=== PATIENT | female | born 1935 | race Caucasian/White ===

== ENCOUNTER 2022-05-27 10:45 | Emergency (ER) | payer MEDICARE, SELFPAY ==
[2022-05-27 10:53] VITALS: BP 134/78; PULSE 76; RESP 18; TEMP 36.2; O2SAT 98
[2022-05-27 11:07] VITALS: BP 143/66; PULSE 59; RESP 18; O2SAT 96
--- NOTE | 2022-05-27 11:13 | ECG_ITS ---
Measurements Intervals [place] Rate: 60 P: 57 [place]: 201 QRS: 23 QRSD: 108 T: 42 QT: 446 QTc: 446 Interpretive Statements SINUS RHYTHM POOR R-WAVE PROGRESSION, POSSIBLE ANTERIOR MYOCARDIAL INFARCTION , OF INDETERMINATE AGE [30 ms Q WAVE IN V3/V4, OR R < 0.2 mV IN V4] POSSIBLE OLD INFERIOR MYOCARDIAL INFARCTION NONSPECIFIC ST AND T CHANGES COMPARED TO ECG 10/10/2019 18:46:42 NO SIGNIFICANT CHANGES Electronically Signed On 05-27-2022 16:32:35 CDT by Ivy Zhu M.D.
[2022-05-27 11:17] VITALS: BP 141/61; PULSE 59; RESP 20; O2SAT 98
[2022-05-27 11:24] LABS: Basophils Absolute Auto 0.1 K/mm3 (0.0-0.1); Eosinophils Absolute Auto 0.2 K/mm3 (0-0.3); Hematocrit 38.5 % (37.0-47.0); Hemoglobin 12.5 g/dL (12.0-15.0); Immature Granulocyte Absolute 0.02 K/mm3 (0.00-0.031); Immature Granulocyte Percent A 0.3 % (0-0.5); Lymphocytes Absolute Auto 2.32 K/mm3 (0.9-3.2); Lymphocytes Percent Auto 33.7 % (18.3-44.2); Mean Corpuscular HGB Conc 32.5 g/dl (32-36); Mean Corpuscular Hemoglobin 33.5 pg (26-34); Mean Corpuscular Volume 103.2 fl (80-100); Mean Platelet Volume 11.4 fl (7.4-10.4); Monocytes Absolute Auto 0.8 K/mm3 (0.1-0.6); Neutrophils Absolute Auto 3.4 K/mm3 (1.3-6.7); Platelet Count Result 232 k/mm3 (150-375); Red Blood Count 3.73 M/mm3 (4.2-5.4); Red Cell Distribution Width 14.7 % (11.5-14.5); White Blood Count 6.9 K/mm3 (4.5-10.0)
[2022-05-27 11:32] VITALS: BP 152/65; PULSE 61; RESP 18; O2SAT 97
[2022-05-27 11:34] LABS: INR 1.1; Prothrombin Time 13.3 Seconds (11.1-14.7)
[2022-05-27 11:47] VITALS: BP 149/69; PULSE 58; O2SAT 98
[2022-05-27 11:52] LABS: Albumin Level 4.3 g/dL (3.5-5.1); Alkaline Phosphatase 89 U/L (38-126); Anion Gap 9 mmol/L (8-16); Aspartate Amino Transferase 27 U/L (14-36); Bilirubin,Total 0.7 mg/dL (0.2-1.3); Blood Urea Nitrogen 20 mg/dL (7-17); Calcium 9.1 mg/dL (8.4-10.2); Carbon Dioxide 29 mmol/L (22-30); Chloride 101 mmol/L (98-107); Estimated Glomerular Filt Rate 59; Glucose 106 mg/dL (65-110); Potassium 3.8 mmol/L (3.4-5.0); Sodium 139 mmol/L (137-145)
[2022-05-27 12:00] LABS: Alanine Aminotransferase < 6 U/L (6-35)
--- NOTE | 2022-05-27 12:12 | ED.GENADULT ---
HPI - General Adult General Chief complaint: Recheck/Abnormal Lab/Rx Stated complaint: labs - k high platelets low Time Seen by Provider: 05/27/22 11:13 Source: patient and family Mode of arrival: ambulatory Limitations: no limitations History of Present Illness HPI narrative: 86-year-old with a history of hypertension, CAD was sent from doctor's office with abnormal lab work which was done yesterday. As per the doctor's office she had a platelet count of 38 and a potassium of 6.1. Patient denies any headache, chest pain or shortness of breath. No history of any bleeding. She states I am just fine . Related Data Allergies Allergy/AdvReac Type Severity Reaction Status Date / Time No Known Allergies Allergy Verified 05/27/22 10:59 Review of Systems Review of Systems: All systems reviewed & are unremarkable except as noted in HPI and below Constitutional: Constitutional: Reports no additional constitutional complaints Eyes: Eyes: Reports no additional eye complaints ENT: Reports system reviewed and no additional complaints, except as documented Cardiovascular: Cardiovascular: Reports no additional cardiovascular complaints Respiratory: Respiratory: Reports no additional respiratory complaints Gastrointestinal: Gastrointestinal: Reports no additional gastrointestinal complaints Genitourinary: Genitourinary: Reports no additional female genitourinary complaints Musculoskeletal: Musculoskeletal: Reports no additional musculoskeletal complaints Integumentary/Breasts: Skin/Breast: Reports system reviewed and no additional complaints, except as docu Neurologic: Reports system reviewed and no additional complaints, except as documented Psychiatric: Psychiatric: Reports no additional psychiatric complaints PMFSH Past Medical History Medical History (Updated 05/27/22 @ 12:19 by Osman Sullivan MD) A-fib Anemia Anxiety Arthritis CAD (coronary artery disease) Cataracts, bilateral Colon tumor Depression H/O: HTN (hypertension) Hepatitis History of angina History of GI bleed History of heart attack History of melena Hx of fracture of rib Hypercholesteremia MVP (mitral valve prolapse) Shingles Surgical History Surgical History H/O breast biopsy x2 History of angioplasty History of appendectomy History of dilation and curettage History of hand surgery rt for trigger thumn History of partial colectomy History of partial knee replacement rt Hx of bilateral cataract extraction Hx of cardiac cath with stent placement S/P CABG x 4 Family History Family History Father Family history of glaucoma Cerebrovascular accident Carcinoma of colon Malignant neoplasm of prostate Mother Hypertension Family history of cardiovascular disease Acute myocardial infarction, Onset Age: 43 Sibling Hypertension Family history of cardiovascular disease Social History Social History (Updated 05/22/22 @ 12:55 by JAJA Son) Smoking packs per day: 0.5 Smoking cigarettes per day: 10.0 Years smoked: 25 Smoking pack-years: 12.50 Smoking status: Former smoker Tobacco type: cigarettes Second hand tobacco smoke exposure: No Smoking end date: 09/18/80 Alcohol intake: current Drinks per week: 2 Alcohol use details: She drinks 2 margaritas every Thursday. Substance use: never Substance use type: does not use Gender identity (if verbalized by the patient): Female Spiritual care concerns: No Agree to blood products: Yes Exam Narrative: GENERAL: Well-appearing, well-nourished, and in no acute distress. HEAD: Normocephalic, atraumatic. EYES: PERRLA and EOMI. NECK: Supple. CHEST: Clear to auscultation. No respiratory distress. HEART: Regular rate and rhythm. No murmur heard. Normal peripheral pulses. ABDOMEN: Soft, nontender, nondistended, normal active jasson
[2022-05-27 12:17] VITALS: BP 151/66; PULSE 57; O2SAT 97
== END 2022-05-27 12:41 | disposition home or self-care (01) ==
PROVIDERS: Emergency Provider Family Medicine; PCP Emergency Medicine
DX: I48.91 Unspecified atrial fibrillation (principal); I25.10 Atherosclerotic heart disease of native coronary artery without angina pectoris; I10 Essential (primary) hypertension; I25.2 Old myocardial infarction; E78.00 Pure hypercholesterolemia, unspecified; I34.1 Nonrheumatic mitral (valve) prolapse; F41.9 Anxiety disorder, unspecified; F32.A Depression, unspecified; Z86.2 Personal history of diseases of the blood and blood-forming organs and certain disorders involving the immune mechanism; Z79.82 Long term (current) use of aspirin; R94.31 Abnormal electrocardiogram [ECG] [EKG]
CPT/HCPCS: 36415; 80053; 85025; 85610; 93005; 99283

== ENCOUNTER 2022-12-14 18:05 | Emergency (ER) | payer MEDICARE, SELFPAY ==
[2022-12-14] VITALS (26 sets, daily range): BP systolic 107–135; BP diastolic 45–78; PULSE 53–70; RESP 10–39; TEMP 36.7; O2SAT 77–100
--- NOTE | ~2022-12-14 | XR_ITS ---
EXAMINATION: XR chest 2V Exam Date/Time: 12/14/2022 20:00 [employer] HISTORY: weakness, dizziness Comparison: 10/11/2019. RESULT: Lines, tubes, and devices: Intact sternotomy wires. Mediastinal surgical clips. Lungs and pleura: Senescent changes, minimal bibasilar atelectasis/scar, otherwise clear. Cardiomediastinal silhouette: Stable cardiomegaly. Other: No acute osseous or upper abdominal finding. IMPRESSION: No acute cardiopulmonary process. Reviewed, dictated and finalized at location K. N [facility]ING GUIDE
--- NOTE | ~2022-12-14 | CT_ITS ---
EXAMINATION: CT brain wo con DATE: 12/14/2022 19:34 INDICATION: CONFUSION . TECHNIQUE: Computed tomography (CT) of the head was performed without intravenous contrast. The mA wa s adjusted according to patient size. Iterative reconstruction technique was employed. The dose-lengt h product was 908.00 mGy-cm. COMPARISON: 10/10/2019. FINDINGS: Exam limited by significant motion artifact which persisted in repeated imaging attempts. No acute intracranial hemorrhage or extra-axial fluid collection. No hydrocephalus, mass, or herniation. No acute ischemic infarct. Unremarkable dural venous sinus attenuation. No acute osseous abnormality. The aerated spaces are clear. Moderate atrophy and chronic white matter change. Atherosclerotic intracranial calcification. Chronic bilateral cerebellar and lacunar infarctions. Bilateral lens replacements. IMPRESSION: Significantly motion limited examination, such that subtle pathology could be missed. Within that con straint, no definite acute intracranial process is detected Reviewed, dictated and finalized at location K. BLOWER IMPRESSION: Significantly motion limited examination, such that subtle pathology could be m issed. Within that constraint, no definite acute intracranial process is detect ed
--- NOTE | 2022-12-14 18:41 | ECG_ITS ---
Measurements Intervals [place] Rate: 53 P: [place]: 0 QRS: 10 QRSD: 114 T: 255 QT: 477 QTc: 449 Interpretive Statements SINUS RHYTHM WITH HIGH GRADE AV BLOCK BASELINE ARTIFACT ANTERIOR MYOCARDIAL INFARCTION, OF INDETERMINATE AGE MODERATE T-WAVE ABNORMALITY, CONSIDER INFERIOR ISCHEMIA CANNOT RULE OUT INFERIOR INFARCTION ABNORMAL ECG COMPARED TO ECG 05/27/2022 11:02:04 NO SIGNIFICANT CHANGES Electronically Signed On 12-15-2022 14:07:37 PROCUREMENT ENGINEER by Dominic Galeano M.D.
--- NOTE | 2022-12-14 18:43 | ED.GENADULT ---
HPI - General Adult General Chief complaint: Weakness Stated complaint: generalized weakness Time Seen by Provider: 12/14/22 18:35 History of Present Illness HPI narrative: Patient is an 87-year-old female with a history of Parkinson's disease, dementia, hypothyroidism, here from nursing facility for evaluation of generalized weakness. Her daughter expresses concern over the fact that patient has been more fatigued than usual over the past several days and has had several falls out of bed. No head injury. She was treated for UTI last week at her nursing facility. She had some dizziness today that resolved. Patient denies any chest pain, shortness of breath, fevers or chills, nausea or vomiting, abdominal pain, dysuria, urgency or frequency. She has been compliant with all of her medicines. Related Data Allergies Allergy/AdvReac Type Severity Reaction Status Date / Time No Known Allergies Allergy Verified 12/14/22 18:25 Review of Systems Review of Systems: Gen.: Reports weakness Eyes: Denies eye pain or visual change ENT: Denies congestion Respiratory: Denies shortness of breath or cough CV: Denies chest pain or palpitations GI: Denies abdominal pain nausea, emesis or diarrhea denies burning, urgency, frequency or hematuria Musculoskeletal: Denies back pain or muscle pain Neuro: Denies numbness, tingling, weakness or focal weakness Skin: Denies rash Except as documented, all other systems reviewed and negative [facility] Past Medical History Medical History A-fib Anemia Anxiety Arthritis CAD (coronary artery disease) Cataracts, bilateral Colon tumor Depression H/O: HTN (hypertension) Hepatitis History of angina History of GI bleed History of heart attack History of melena Hx of fracture of rib Hypercholesteremia MVP (mitral valve prolapse) Shingles Surgical History Surgical History H/O breast biopsy x2 History of angioplasty History of appendectomy History of dilation and curettage History of hand surgery rt for trigger thumn History of partial colectomy History of partial knee replacement rt Hx of bilateral cataract extraction Hx of cardiac cath with stent placement S/P CABG x 4 Family History Family History Father Family history of glaucoma Cerebrovascular accident Carcinoma of colon Malignant neoplasm of prostate Mother Hypertension Family history of cardiovascular disease Acute myocardial infarction, Onset Age: 43 Sibling Hypertension Family history of cardiovascular disease Social History Social History (Updated 09/25/22 @ 13:42 by Gunjan Carr) Social History: Caffeine-daily Smoking packs per day: 0.5 Smoking cigarettes per day: 10.0 Years smoked: 25 Smoking pack-years: 12.50 Smoking status: Former smoker Tobacco type: cigarettes Second hand tobacco smoke exposure: No Smoking end date: 09/18/80 Alcohol intake: former Drinks per week: 2 Alcohol use details: She drinks 2 margaritas every Thursday. Substance use: never Substance use type: does not use Living arrangements: alone Gender identity (if verbalized by the patient): Female Spiritual care concerns: No Agree to blood products: Yes Exam Narrative: APPEARANCE: Well appearing, no pain in distress, well-nourished. Head: Normocephalic and atraumatic. EYES: PERRLA/EOMI, conjunctivae clear NOSE: No nasal drainage EARS: External ear normal in appearance THROAT: Oropharynx is clear. Mucous membranes are moist. NECK: Supple. No adenopathy, no masses. RESPIRATORY: Airway patent, respirations nonlabored. Clear to auscultation bilaterally, no rales, rhonchi, wheezing. CARDIOVASCULAR: Regular rate and rhythm without murmurs, rubs, or gallops. ABDOMINAL: Normoactive bowel sounds. Soft, nontender, nondistended. No rebou
[2022-12-14] MEDS: SODIUM CHLORIDE 0.9% IV 1,000 ML 999 ML IV CONT (18:58)
[2022-12-14 19:02] LABS: Basophils Absolute Auto 0.1 K/mm3 (0.0-0.1); Basophils Percent Auto 0.7 % (0.2-1.2); Eosinophils Percent Auto 0.3 % (0-4.4); Hematocrit 37.4 % (37.0-47.0); Hemoglobin 12.6 g/dL (12.0-15.0); Immature Granulocyte Absolute 0.04 K/mm3 (0.00-0.031); Immature Granulocyte Percent A 0.4 % (0-0.5); Lymphocytes Absolute Auto 1.49 K/mm3 (0.9-3.2); Lymphocytes Percent Auto 14.5 % (18.3-44.2); Mean Corpuscular HGB Conc 33.7 g/dl (32-36); Mean Corpuscular Hemoglobin 33.5 pg (26-34); Mean Corpuscular Volume 99.5 fl (80-100); Mean Platelet Volume 11.9 fl (7.4-10.4); Monocytes Absolute Auto 1.2 K/mm3 (0.1-0.6); Monocytes Percent Auto 11.3 % (2.6-8.5); Neutrophils Absolute Auto 7.5 K/mm3 (1.3-6.7); Neutrophils Percent Auto 72.8 % (45.5-73.1); Platelet Count Result 209 k/mm3 (150-375); Red Blood Count 3.76 M/mm3 (4.2-5.4); Red Cell Distribution Width 14.6 % (11.5-14.5); White Blood Count 10.3 K/mm3 (4.5-10.0)
[2022-12-14 19:12] LABS: Alanine Aminotransferase 9 U/L (6-35); Albumin Level 4.4 g/dL (3.5-5.1); Alkaline Phosphatase 97 U/L (38-126); Anion Gap 7 mmol/L (8-16); Aspartate Amino Transferase 25 U/L (14-36); Bilirubin,Total 0.9 mg/dL (0.2-1.3); Blood Urea Nitrogen 27 mg/dL (7-17); Calcium 9.5 mg/dL (8.4-10.2); Carbon Dioxide 30 mmol/L (22-30); Chloride 95 mmol/L (98-107); Estimated CRCL calculation 23 ml/min; Estimated Glomerular Filt Rate 42; Glucose 101 mg/dL (65-110); Potassium 3.2 mmol/L (3.4-5.0); Sodium 132 mmol/L (137-145)
[2022-12-14 19:16] LABS: INR 1.1; Prothrombin Time 13.6 Seconds (11.1-14.7)
[2022-12-14 19:17] LABS: Partial Thromboplastin Time 27.1 SECONDS (22.3-36.8)
[2022-12-14 19:48] LABS: Influenza A QL RT-PCR Negative (Negative); Influenza B QL RT-PCR Negative (Negative); SARS-CoV-2 RNA PCR Negative
[2022-12-14 19:56] LABS: Thyroid Stimulating Hormone Reflex 0.088 uIU/mL (0.465-4.68)
[2022-12-14 20:35] LABS: Free T4 Free Thyroxine Reflex 2.45 ng/dL (0.78-2.19)
[2022-12-14 21:41] LABS: Appearance Urine Clear (Clear); Bacteria Urine None Seen /hpf; Bilirubin Urine Negative (Negative); Blood Urine Negative (Negative); Color Urine Dark Yellow (Yellow); Glucose Urine UA Negative (Negative); Hyaline Casts Urine Present /lpf; Ketones Urine 1+ mg/dL (Negative); Leukocyte Esterase Ur Negative LEU/UL (Negative); Mucus Urine Present /lpf; Need Manual Microscopic Reviewed; Nitrate Urine Negative (Negative); Protein Urine Trace mg/dL (Negative); RBC Urine 0-2 /hpf (0-2); Specific Grav Ur 1.018 (1.001-1.035); Squamous Epithelial Cell Urine None seen /hpf (Few); WBC Urine 0-5 /hpf
[2022-12-14 21:43] LABS: Add Urine Microscopic? YES
--- NOTE | 2022-12-14 22:07 | PC.NURSE ---
Patient ambulated by MARANDA Ramirez with walker. Patient ambulated well without difficulty.
--- NOTE | 2022-12-14 22:44 | PC.NURSE ---
Patient care report called to MARANDA Ortiz at [facility].
== END 2022-12-14 22:43 ==
PROVIDERS: Emergency Medicine; Emergency Provider Physician Assistant; PCP Emergency Medicine
DX: R53.1 Weakness (principal); Z20.822 Contact with and (suspected) exposure to COVID-19; G20 Parkinson's disease; F03.90 Unspecified dementia, unspecified severity, without behavioral disturbance, psychotic disturbance, mood disturbance, and anxiety; I48.91 Unspecified atrial fibrillation; I10 Essential (primary) hypertension; I25.2 Old myocardial infarction; I34.1 Nonrheumatic mitral (valve) prolapse; E78.00 Pure hypercholesterolemia, unspecified; E03.9 Hypothyroidism, unspecified; M19.90 Unspecified osteoarthritis, unspecified site; Z86.2 Personal history of diseases of the blood and blood-forming organs and certain disorders involving the immune mechanism; Z87.891 Personal history of nicotine dependence; Z95.1 Presence of aortocoronary bypass graft; Z95.5 Presence of coronary angioplasty implant and graft; Z96.651 Presence of right artificial knee joint; Z90.49 Acquired absence of other specified parts of digestive tract; Z79.82 Long term (current) use of aspirin; I44.30 Unspecified atrioventricular block; R94.31 Abnormal electrocardiogram [ECG] [EKG]
CPT/HCPCS: 36415; 70450; 71046; 80053; 81001; 84439; 84443; 85025; 85610; 85730; 87636; 93005; 96360; 96361; 99284; J7030

== ENCOUNTER 2022-12-30 12:44 | Outpatient (CLI) | payer MEDICARE, SELFPAY ==
[2022-12-30 20:00] LABS: Anion Gap 10 mmol/L (8-16); Blood Urea Nitrogen 22 mg/dL (7-17); Calcium 9.9 mg/dL (8.4-10.2); Carbon Dioxide 27 mmol/L (22-30); Chloride 96 mmol/L (98-107); Estimated Glomerular Filt Rate 42; Glucose 97 mg/dL (65-110); Potassium 3.2 mmol/L (3.4-5.0); Sodium 133 mmol/L (137-145)
== END 2022-12-30 12:45 | disposition home or self-care (01) ==
LOC: ANHGOSHLAB 12:45
PROVIDERS: PCP Emergency Medicine; Visit Provider Emergency Medicine
DX: N17.9 Acute kidney failure, unspecified (principal)
CPT/HCPCS: 36415; 80048